=== PATIENT | female | born 1990 | race Caucasian/White ===

== ENCOUNTER 2019-06-11 08:45 | Inpatient (IN) | payer OTHER ==
[2019-06-11] MEDS ORDERED: Lactated Ringers 1000 ML Bag* 1,000 ML IV ONE (08:54)
[2019-06-11] MEDS ORDERED: Buffered Lidocaine 1% SYRIN* 1 ML/SYRINGE INTRADERM ONE (08:54)
[2019-06-11] MEDS ORDERED: Penicillin G Potassium IV* 5,000,000 UNITS in NS 0.9% 100 ML* 100 ML IVPB ONE (08:54)
[2019-06-11] MEDS ORDERED: Penicillin G Potassium IV* 2,500,000 UNITS in NS 0.9% 100 ML* 100 ML IVPB SCH (09:00)
[2019-06-11] MEDS ORDERED: Lactated Ringers 1000 ML Bag* 1,000 ML IV SCH ×2 (09:00→14:00)
--- NOTE | 2019-06-11 09:04 | HP ---
General Information - Reason for Visit Pt presents to L&D with c/o ctx since 4AM, + FM, - VB, - LOF. - General Information Maternal Age: 29 Grav: 2 Para: 1 SAB: 0 IEA: 0 Estimated Due Date: 06/03/19 Determined By: LMP Gestational Age in Weeks/Days: 41.1 Maternal Blood Type and Rh: AB Positive - Results this Serology/RPR Result: Non-Reactive Rubella Result: Immune HBsAg Result: Negative HIV Result: Negative GBS Culture Result: Positive Past Medical History Delivery History: Hx Uncomplicated Vaginal Delivery, Hx Complicated Vaginal Delivery - 3rd degree laceration and pushed > 3 hrs Pertinent Past Medical History: Non-Contributory Pertinent Past Surgical History: None Pertinent Family History: See Records - MGM: breast CA - Antepartal Records Antepartal Records: Reviewed, Complicated by: - GBS positive Review of Systems Constitutional: Uncomfortable CV Complaint: No Respiratory: Shortness of Breath: No Gastrointestinal: No Nausea/Vomiting, Normal Bowel Movement Genitourinary: No Dysuria, No Bleeding, No Leaking Fluid Musculoskeletal: Contractions Neurological: No Headache, No Visual Changes Movement: Normal Exam T:97.6, P:60, R:16, BP: 92/58, O2:100% - Measurements Height: 5 ft 9 in Weight: 166 lb Body Mass Index (BMI): 24.5 Pre- Weight: 139 lb - Exam Breast: Breast Exam Deferred CVA: No CVA Tenderness Extremities: No Edema Heart: Normal Rhythm/Heart Sounds HEENT: No Significant Findings Lungs: Clear Bilaterally Rectal: Rectal Exam Deferred Reflexes: DTR 2+ Thyroid: No Thyromegaly - Abdominal Exam Abdomen Exam: Fundal Height Consistent with Dates - Ultrasound/Biophysical Profile Ultrasound Status: Not Done Targeted Exam Findings Estimated Weight: 7lbs 8oz Membrane Status: Intact Bleeding/Discharge: None EFM Findings - External Monitor Findings Baseline Heart Rate: 120 External Monitor Findings: Accelerations Present, No Pattern of Variable or Late Decelerations, Variability Moderate, Baseline Stable Contractions: Regular, Moderate, 45-90 Seconds Contraction Frequency: 2-4 Assessment/Plan - Assessment 29 y.o. , 41w1d EGA, active labor, Cat I NST - Obstetrical Risk Factors Obstetrical Risk Factors: GBS Positive, Post-Dates - Plan Plan: Admit - Anticipate Vaginal Delivery - Date/Time of Admission Date of Admission: 06/11/19 Time of Admission: 08:50
[2019-06-11] MEDS ORDERED: Dibucaine 1% 28.35 GM TUBE PR PRN (13:22)
[2019-06-11] MEDS ORDERED: Acetaminophen TAB* 325 MG PO PRN (13:22)
[2019-06-11] MEDS ORDERED: Glycerin ADULT SUPP PR PRN (13:22)
[2019-06-11] MEDS ORDERED: Witch Hazel PAD* JAR TOPICAL PRN (13:22)
[2019-06-11] MEDS ORDERED: Ibuprofen TAB* 600 MG PO PRN (13:22)
--- NOTE | 2019-06-11 13:22 | PROCNOTE ---
[facility] OB: Delivery Note - Delivery A Date of : 06/11/19 Time of : 12:53 Sex: Male Score 1 Minute: 9 Score 5 Minutes: 10 Gestational Age in Weeks and Days at Delivery: 41 Weeks and 1 Days Delivery Method: Spontaneous Vaginal Labor: Spontaneous Amniotic Fluid: Clear Estimated Blood Loss: 300 Anesthesia/Analgesia: None Delivered By: Cathie Ervin - Nursery Level of Nursery: Regular/Bedside - Perineum Perineal Injury: Perineal Laceration, 1st Degree Perineal Repair: By Delivering Practioner - Events Delivery Events of Note: None Apply
[2019-06-11] MEDS ORDERED: Lidocaine 1% INJ* 10 MG/ML 30 ML SDV ONE ×2 (15:22→18:56)
[2019-06-11 16:05] LABS: Urine Benzodiazepine Screen None Detected (None Detect); Urine Opiates Screen None Detected (None Detect)
[2019-06-11] MEDS: Docusate CAP* 100 MG PO SCH (20:25)
[2019-06-12 08:17] LABS: ABS Monocytes 0.9 10^3/ul (0-0.8); ABS Neutrophils 8.7 10^3/ul (1.5-7.7); Eosinophil % 0.3 %; Hematocrit 37 % (35-47); Hemoglobin 12.6 g/dL (12.0-16.0); Lymphocyte % 17.1 %; Mean Corpuscular HGB Conc 34 g/dL (31-36); Mean Corpuscular Hemoglobin 31 pg (27-31); Mean Corpuscular Volume 89 fL (80-97); Mean Platelet Volume 8.7 fL (7.4-10.4); Platelet Count 212 10^3/uL (150-450); Red Blood Count 4.14 10^6 /uL (3.70-4.87); Red Cell Distribution Width 14 % (10-15); White Blood Count 11.7 10^3/uL (3.5-10.8)
[2019-06-12] MEDS: Docusate CAP* 100 MG PO SCH ×4 (08:56→20:27)
[2019-06-12] MEDS: Simethicone TAB* 80 MG TAB.CHEW PO SCH ×2 (08:56→08:57)
[2019-06-12] MEDS ORDERED: Ferrous Gluconate TAB* 324 MG TAB PO SCH (09:00)
[2019-06-13] MEDS ORDERED: Varicella Virus Vaccine Live* 0.5 ML VIAL SUBCUT ONE (09:00)
[2019-06-13] MEDS: Docusate CAP* 100 MG PO SCH (09:02)
[2019-06-13 12:31] VITALS: BP 99/54
== END 2019-06-13 15:39 | disposition home or self-care (01) | DRG 807 ==
LOC: MCHOBOUT 08:45 → MCHOB 09:12
PROVIDERS: ADMIT Midwife; ATTEND Midwife
PROC: 10E0XZZ Delivery of Products of Conception, External Approach (ICD-10-PCS; principal; 2019-06-11)
PROC: 0HQ9XZZ Repair Perineum Skin, External Approach (ICD-10-PCS; 2019-06-11)
DX: O48.0 Post-term pregnancy (principal); Z37.0 Single live birth; O99.824 Streptococcus B carrier state complicating childbirth; O70.0 First degree perineal laceration during delivery; Z3A.41 41 weeks gestation of pregnancy
CPT/HCPCS: 36415; 80307; 85025; A9270-GY; J2540